=== PATIENT | male | born 1950 | race Caucasian/White ===

== ENCOUNTER 2019-10-27 21:56 | Emergency (ER) | payer OTHER ==
[~2019-10-27] VITALS: Ht 172.7 cm; Wt 63.5 kg
[2019-10-27 22:12] VITALS: Ht 172.7 cm; Wt 63.5 kg
[2019-10-28 01:40] VITALS: BP 119/52
== END 2019-10-28 01:40 | disposition home or self-care (01) ==
LOC: ED 21:56
DX: L03.116 Cellulitis of left lower limb (principal)
CPT/HCPCS: Q0092